=== PATIENT | female | born 1980 | race Caucasian/White ===

== ENCOUNTER → 2017-02-21 | Outpatient (CLI) | payer BC ==
[~2017-02-21] MED LIST: FRS325T PO; PREN1TAB49 PO
--- NOTE | 2017-02-21 17:36 | Diagnostic Imaging Report ---
INDICATION: Irregular menses. Abnormal menstrual bleeding. COMPARISON: None. TECHNIQUE: Transpelvic and transvaginal sonogram was performed. FINDINGS: The uterus is anteverted and measures 10.7 cm in length x 7.1 cm transversely x 6.1 cm in AP dimension. No focal myometrial mass-type lesions are seen. Endometrial stripe measures 13 mm in AP thickness. Endometrial stripe is predominantly hyperechoic, but does show some areas of heterogeneity. There is also some blurring of the subendometrial margins. Visualized portions of the cervix are unremarkable. No adnexal masses or free fluid are seen. Ovaries cannot be well visualized on either side. IMPRESSION: 1. Borderline thickened and slightly heterogeneous appearance to the endometrium. Underlying endometrial mass cannot be excluded. Additionally, the subendometrial margins are not well defined. This does also raise concern for possible adenomyosis. If further imaging evaluation is desired, dedicated pelvic MR is recommended. Dictated by: Dictated on workstation # [id number]
== END ==
LOC: RAD 16:29
PROVIDERS: ATTEND Nurse Practitioner Family
DX: N92.1 Excessive and frequent menstruation with irregular cycle (principal)
CPT/HCPCS: 76830; 76856

== ENCOUNTER 2017-03-08 12:48 | Outpatient (RCR) | payer BC, OTHER ==
[2017-02-07 13:31] LABS: BASOPHILS % (AUTO) 1 % (0-10); EOSINOPHILS # (AUTO) 0.2 10^3/uL (0.0-0.3); EOSINOPHILS % (AUTO) 5 % (0-10); LYMPHOCYTES # (AUTO) 1.2 X 10^3 (1.0-4.0); LYMPHOCYTES % (AUTO) 23 % (12-44); MEAN CORPUSCULAR HEMOGLOBIN 27 PG (25-34); MEAN CORPUSCULAR HGB CONC 32 G/DL (32-36); MEAN CORPUSCULAR VOLUME 84 FL (80-99); MEAN PLATELET VOLUME 11.3 FL (7.4-10.4); MONOCYTES # (AUTO) 0.4 X 10^3 (0.0-1.0); MONOCYTES % (AUTO) 7 % (0-12); NEUTROPHILS # (AUTO) 3.2 X 10^3 (1.8-7.8); NEUTROPHILS % (AUTO) 65 % (42-75); PLATELET COUNT 319 10^3/uL (130-400); RED BLOOD COUNT 3.91 10^6/uL (4.35-5.85)
[2017-02-07 14:11] LABS: ALANINE AMINOTRANSFERASE 9 U/L (0-55); ALBUMIN 4.4 GM/DL (3.2-4.5); ANION GAP 8 MMOL/L (5-14); ASPARTATE AMINO TRANSFERASE 9 U/L (5-34); BILIRUBIN,TOTAL 0.5 MG/DL (0.1-1.0); BLOOD UREA NITROGEN 7 MG/DL (7-18); BUN/CREATININE RATIO 9; CALCIUM 9.2 MG/DL (8.5-10.1); CARBON DIOXIDE 22 MMOL/L (21-32); CHLORIDE 108 MMOL/L (98-107); CREATININE SERUM 0.76 MG/DL (0.60-1.30); GFR ESTIMATED > 60; GLUCOSE 88 MG/DL (70-105); POTASSIUM 3.7 MMOL/L (3.6-5.0); SODIUM 138 MMOL/L (135-145); TOTAL PROTEIN 7.3 GM/DL (6.4-8.2)
[2017-03-08 13:15] LABS: BASOPHILS % (AUTO) 1 % (0-10); EOSINOPHILS # (AUTO) 0.3 10^3/uL (0.0-0.3); EOSINOPHILS % (AUTO) 6 % (0-10); LYMPHOCYTES # (AUTO) 1.3 X 10^3 (1.0-4.0); LYMPHOCYTES % (AUTO) 25 % (12-44); MEAN CORPUSCULAR HEMOGLOBIN 30 PG (25-34); MEAN CORPUSCULAR HGB CONC 33 G/DL (32-36); MEAN CORPUSCULAR VOLUME 90 FL (80-99); MEAN PLATELET VOLUME 11.8 FL (7.4-10.4); MONOCYTES # (AUTO) 0.4 X 10^3 (0.0-1.0); MONOCYTES % (AUTO) 7 % (0-12); NEUTROPHILS # (AUTO) 3.2 X 10^3 (1.8-7.8); NEUTROPHILS % (AUTO) 61 % (42-75); PLATELET COUNT 293 10^3/uL (130-400); RED BLOOD COUNT 3.91 10^6/uL (4.35-5.85); RED CELL DISTRIBUTION WIDTH 18.7 % (10.0-14.5); WHITE BLOOD COUNT 5.1 10^3/uL (4.3-11.0)
== END 2017-04-09 | disposition home or self-care (01) ==
LOC: ONC 12:48
PROVIDERS: ATTEND Internal Medicine Hematology & Oncology
DX: D50.9 Iron deficiency anemia, unspecified (principal); N92.0 Excessive and frequent menstruation with regular cycle; E53.8 Deficiency of other specified B group vitamins; E55.9 Vitamin D deficiency, unspecified; Z79.899 Other long term (current) drug therapy
CPT/HCPCS: 36415; 80053; 82728; 83540; 85025; 99213; 99214

== ENCOUNTER 2017-10-22 20:28 | Emergency (ER) | payer BC ==
[~2017-10-22] VITALS: Ht 162.6 cm; Wt 65.8 kg
[2017-10-22] MEDS ORDERED: ERGO50006 (20:43)
[2017-10-22] MEDS ORDERED: NORG1TAB81 (20:43)
[2017-10-22] MEDS ORDERED: C250T (20:43)
[2017-10-22] MEDS ORDERED: SERT100T8 (20:43)
--- NOTE | 2017-10-22 20:58 | ED GU-Female ---
General Chief Complaint: -Female Stated Complaint: DYSURIA,FEVER,CHILLS Nursing Triage Note: C/O DYSURIA AND BEING UNALBE TO EMPTY BLADDER Nursing Sepsis Screen: No Definite Risk Source: patient Exam Limitations: no limitations History of Present Illness Date Seen by Provider: Oct 22, 2017 Time Seen by Provider: 20:49 Initial Comments The patient presents to the ER by private conveyance with a chief complaint that she is having urinary symptoms for the last 3 weeks intermittently. She thought she had a urinary tract infection but went away on her own using cranberry and copious fluids. However the last day or so she's had difficulty urinating and today she's not urinated since this morning although she feels she has to urinate she feels like her bladder is backed up. She has painful attempts to urinate and pain in her right flank that is made worse by movement. She has no history of kidney stones. She's never had pyelonephritis. She's having no fevers, chills or she is having nausea without vomiting. The patient is on oral contraceptives. Allergies and Home Medications Allergies Coded Allergies: metoclopramide (Verified Allergy, Unknown, 10/13/09) Home Medications Ferrous Sulfate 325 Mg Tab, 325 MG PO BID Prescribed by: GIANFRANCO CELESTE on 12/12/14 0138 Patient Home Medication List Home Medication List Reviewed: Yes Review of Systems Constitutional: No chills, No diaphoresis, No fever, No malaise EENTM: No ear discharge, No ear pain Respiratory: No cough, No short of breath Gastrointestinal: No abdominal pain, No constipation, No diarrhea; nausea; No vomiting; other (right flank pain) Genitourinary: burning; denies discharge; dysuria, frequency (hesitancy) : No (oral contraceptive pills) Musculoskeletal: back pain (right flank); No joint pain Past Bzxglzd-Mzrkcm-Cntcrg Hx Patient Social History Alcohol Use: Denies Use Recreational Drug Use: No Smoking Status: Never a Smoker Recent Foreign Travel: No Contact w/Someone Who Travel: No Recent Infectious Disease Expo: No Recent Hopitalizations: No Past Medical History Surgeries: Yes ( X 4, D & C X 1, MOLE REMOVAL) Section Respiratory: No Cardiac: No Neurological: No Reproductive Disorders: No Female Reproductive Disorders: Denies Sexually Transmitted Disease: No HIV/AIDS: No Gastrointestinal: No Musculoskeletal: No Endocrine: No Cancer: No Psychosocial: No Integumentary: No Blood Disorders: No Physical Exam Vital Signs Vital Signs - First Documented 10/22/17 20:36 Temp 98.0 Pulse 87 Resp 18 B/P (MAP) 124/67 (86) Pulse Ox 98 Capillary Refill : Less Than 3 Seconds General Appearance: WD/WN, mild distress HEENT: PERRL/EOMI, pharynx normal Neck: non-tender, supple, normal inspection Cardiovascular: normal peripheral pulses, regular rate, rhythm, no edema Respiratory: lungs clear, normal breath sounds, no respiratory distress, no accessory muscle use Gastrointestinal: non tender, soft, other (palpable bladder but not massive.) Back: normal inspection, no vertebral tenderness, CVA tenderness (R); No CVA tenderness (L) Extremities: non-tender, normal capillary refill Neurologic/Psychiatric: alert, oriented x 3 Skin: normal color, warm/dry Progress/Results/Core Measures Suspected Sepsis Recent Fever Within 48 Hours: No Infection Criteria Present: None New/Unexplained Altered Menta: No Sepsis Screen: No Definite Risk SIRS Temperature:98.0 Pulse: 87 Respiratory Rate: 18 Blood Pressure 124 /67 Mean: 86 Results/Orders Lab Results Laboratory Tests Test 10/22/17 21:05 Range/Units Urine Color YELLOW Urine Clarity SLIGHTLY CLOUDY Urine pH 6.5 5-9 Urine Specific Steele 1.010 L 1.016-1.022 Urine Protein 3+ H NEGATIVE Urine Glucose (UA) NEGATIVE NEGATIVE Urine Ketones NEGATIVE NEGATIVE Urine Nitrite NEGATIVE NEGATIVE Urine Bilirubin NEGATIVE NEGATIVE Urine Urobilinogen NORMAL NORMAL MG/DL Urine Leukocyte Esterase 3+ H NEGATIVE Urine RBC (Auto) 4+ H NEGATIVE Urine RBC 2-5 H /HPF Urine WBC TNTC H /HPF Urine Crystals NONE /LPF Urine Bacteria MODERATE H /HPF Urine Casts NONE /LPF Urine Mucus NEGATIVE /LPF Urine Culture Indicated YES My Orders Orders - MARIA C FOX Ua Culture If Indicated (10/22/17 20:41) Ketorolac Injection (Toradol Injection) (10/22/17 21:00) Ondansetron Oral Dissolve Tab (Zofran (10/22/17 21:00) Sharp Cath Insertion (10/22/17 20:51) Urine Bedside (10/22/17 20:51) Ct Abd/Pelvis Wo(Kidney Stone) (10/22/17 20:51) Ceftriaxone Injection (Rocephin Injectio (10/22/17 21:00) Lidocaine 1% Inj 50 Ml (Xylocaine 1% Inj (10/22/17 21:00) Urine Culture (10/22/17 21:05) Medications Given in ED Current Medications Medications Dose Ordered Sig/Ashlyn Route Start Time Stop Time Status Last Admin Dose Admin Ceftriaxone Sodium 1,000 mg ONCE ONCE IM 10/22/17 21:00 10/22/17 21:01 DC 10/22/17 21:21 1,000 MG Ketorolac Tromethamine 15 mg ONCE ONCE IM 10/22/17 21:00 10/22/17 21:01 DC 10/22/17 21:21 15 MG Lidocaine HCl 2.1 ml ONCE ONCE IJ 10/22/17 21:00 10/22/17 21:01 DC 10/22/17 21:21 2.1 ML Ondansetron HCl 4 mg ONCE ONCE PO 10/22/17 21:00 10/22/17 21:01 DC 10/22/17 21:21 4 MG Vital Signs/I&O 10/22/17 20:36 Temp 98.0 Pulse 87 Resp 18 B/P (MAP) 124/67 (86) Pulse Ox 98 Capillary Refill : Less Than 3 Seconds Blood Pressure Mean: 86 Progress Note : Time: 20:57 Progress Note The patient is requesting a catheter to decompress her bladder as she is attempting to urinate here in the ER and unable to initiate a stream. We'll get a good clean catch sample and perform a CT of her abdomen and pelvis without contrast looking for pyelonephritis versus a kidney stone. We'll give her some pain and nausea medicine and initiate Rocephin. Diagnostic Imaging Diagonstic Imaging: CT Plain Films/CT/US/NM/MRI: abdomen, pelvis Reviewed: Reviewed by Me Departure Impression Primary Impression: Urinary tract infection Qualified Codes: N30.01 - Acute cystitis with hematuria Disposition: HOME, SELF-CARE Condition: Stable Departure-Patient Inst. Decision time for Depature: 21:55 Referrals: ROGELIO CARRIZALES DO (PCP) Primary Care Physician GIOVANNY RIDLEY (Family) Primary Care Physician Patient Instructions: Urinary Tract Infection, Adult (DC) Add. Discharge Instructions: Drink lots of fluids. Use Tylenol or Motrin for pain in the Zofran 1 tablet every 6 hours for nausea. 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 All discharge instructions reviewed with patient and/or family. Voiced understanding. Scripts Ondansetron (Ondansetron Odt) 4 Mg Tab.rapdis 4 MG PO Q6H PRN for NAUSEA/VOMITING, #8 TAB 0 Refills Prov: MARIA C FOX 10/22/17 Cephalexin (Cephalexin) 500 Mg Tablet 500 MG PO BID for 7 Days, #14 TAB 0 Refills Prov: MARIA C FOX 10/22/17 Work/School Note: Work Release Form Date Seen in the Emergency Department: Oct 22, 2017 Return to Work: Oct 23, 2017 Restrictions: No Restrictions Copy Copies To 2: ROGELIO CARRIZALES TITUS J Oct 22, 2017 20:58
[2017-10-22] MEDS ORDERED: KETOROLAC 30 MG/ML VIAL IM ONE (21:00)
[2017-10-22] MEDS ORDERED: cefTRIAXone 1 GM (ROCEPHIN) VIAL IM ONE (21:00)
[2017-10-22] MEDS ORDERED: ONDANSETRON 4 MG (ZOFRAN) ORAL DISSOLVE TAB PO ONE (21:00)
[2017-10-22] MEDS ORDERED: LIDOCAINE 1% INJ 50 ML (XYLOCAINE) VIAL IJ ONE (21:00)
[2017-10-22 21:11] LABS: BILIRUBIN,URINE NEGATIVE (NEGATIVE); CLARITY,URINE SLIGHTLY CLOUDY; COLOR,URINE YELLOW; GLUCOSE, URINE (UA) NEGATIVE (NEGATIVE); KETONES,URINE NEGATIVE (NEGATIVE); LEUKOCYTE ESTERASE ,URINE 3+ (NEGATIVE); NITRITE,URINE NEGATIVE (NEGATIVE); PH,URINE 6.5 (5-9); PROTEIN,URINE 3+ (NEGATIVE); UROBILINOGEN,URINE NORMAL (NORMAL)
--- NOTE | 2017-10-22 21:23 | Diagnostic Imaging Report ---
PROCEDURE: CT urinary tract, rule out kidney stone. TECHNIQUE: Multiple contiguous axial images were obtained through the abdomen and pelvis without the use of intravenous contrast. INDICATION: Dysuria Lung bases are clear. Liver appears normal. Gallbladder is decompressed. There is a large amount of food residue in the stomach. Pancreas is normal. Spleen is normal. There is mild hydronephrosis of the right kidney. There are no calculi. There is no mass seen. Left kidney is normal. The right ureter is mildly dilated. Urinary bladder is decompressed with a Sharp catheter. There is no lymphadenopathy. There is no intraperitoneal free air or free fluid. IMPRESSION: Mild hydronephrosis of the right kidney with a mildly dilated right ureter but no radiopaque calculi seen. Dictated by: Dictated on workstation # [id number]
[2017-10-22 21:35] LABS: BACTERIA,URINE MODERATE /HPF; WBC,URINE TNTC /HPF
[2017-10-22] MEDS ORDERED: RX-ONDANSETRON 4 MG ODT (ZOFRAN) PPK #4 PO STA (22:02)
[2017-10-22] MEDS ORDERED: CEPH500T PO (22:02)
[2017-10-22] MEDS ORDERED: RX-CEPHALEXIN (KEFLEX) 250 MG CAP PPK#4 PO STA (22:02)
[2017-10-22] MEDS ORDERED: ONDA4TAB11 PO (22:02)
[2017-10-22 22:16] VITALS: BP 124/67
== END 2017-10-22 22:18 | disposition home or self-care (01) ==
LOC: EDUNIT# 20:28 → ER 20:29
DX: N39.0 Urinary tract infection, site not specified (principal); Z87.59 Personal history of other complications of pregnancy, childbirth and the puerperium
CPT/HCPCS: 51702; 74176; 81000; 84703; 87077; 87088; 87186; 96372

== ENCOUNTER 2019-09-03 09:15 | Outpatient (CLI) | payer OTHER ==
[~2019-09-03] VITALS: Ht 162.6 cm; Wt 67.4 kg
[~2019-09-03 09:15] MED LIST changes: +C250T; +CEPH500T PO; +ERGO50006; +NORG1TAB19; +ONDA4TAB11 PO; +SERT100T8
--- NOTE | 2019-09-03 09:23 | NUR ---
BIRGIT ZHONG presented to unit from ED, with c/o FAINTING;DIZZINESS. BIRGIT ZHONG weighed, gowned, voided, and to bed. VS taken and FHT's dopplered. BIRGIT ZHONG oriented to bed controls, call light, TV, heat, and A/C controls.
[2019-09-03 09:40] VITALS: BP 112/57
[2019-09-03 09:43] LABS: BILIRUBIN,URINE NEGATIVE (NEGATIVE); CLARITY,URINE CLEAR; COLOR,URINE YELLOW; GLUCOSE, URINE (UA) NEGATIVE (NEGATIVE); KETONES,URINE NEGATIVE (NEGATIVE); LEUKOCYTE ESTERASE ,URINE TRACE (NEGATIVE); NITRITE,URINE NEGATIVE (NEGATIVE); PROTEIN,URINE NEGATIVE (NEGATIVE)
--- NOTE | 2019-09-03 09:48 | NUR ---
FHT's dopplered at this time 160's. FM reported by patient.
--- NOTE | 2019-09-03 09:50 | NUR ---
Flu swab obtained.
[2019-09-03 09:54] LABS: BACTERIA,URINE TRACE /HPF; RBC,URINE RARE /HPF; WBC,URINE RARE /HPF
[2019-09-03] MEDS ORDERED: D5 LR IV SOLUTION 1,000 ML IV ONE (09:55)
--- NOTE | 2019-09-03 09:56 | NUR ---
Dr. Burr notified of patient's arrival and complaints. New orders received.
[2019-09-03] MEDS: D5 LR IV SOLUTION 1,000 ML IV SCH ×2 (10:08→12:14)
--- NOTE | 2019-09-03 10:08 | NUR ---
IV started with 20g jelco in patient's right hand x 1 attempt. D5LR infusing per order. Blood drawn and sent to lab.
[2019-09-03] MEDS ORDERED: PREN1TAB79 PO (10:17)
[2019-09-03] MEDS ORDERED: OSLT75C PO (10:17)
[2019-09-03 10:19] LABS: BASOPHILS % (AUTO) 0 % (0-10); EOSINOPHILS # (AUTO) 0.1 10^3/uL (0.0-0.3); EOSINOPHILS % (AUTO) 2 % (0-10); HEMATOCRIT 35 % (35-52); HEMOGLOBIN 12.4 G/DL (11.5-16.0); LYMPHOCYTES # (AUTO) 1.3 X 10^3 (1.0-4.0); LYMPHOCYTES % (AUTO) 17 % (12-44); MEAN CORPUSCULAR HEMOGLOBIN 34 PG (25-34); MEAN CORPUSCULAR HGB CONC 36 G/DL (32-36); MEAN CORPUSCULAR VOLUME 96 FL (80-99); MEAN PLATELET VOLUME 10.5 FL (7.4-10.4); MONOCYTES # (AUTO) 0.4 X 10^3 (0.0-1.0); MONOCYTES % (AUTO) 6 % (0-12); NEUTROPHILS # (AUTO) 5.7 X 10^3 (1.8-7.8); NEUTROPHILS % (AUTO) 75 % (42-75); PLATELET COUNT 303 10^3/uL (130-400); RED CELL DISTRIBUTION WIDTH 13.2 % (10.0-14.5); WHITE BLOOD COUNT 7.6 10^3/uL (4.3-11.0)
[2019-09-03 10:38] LABS: ALANINE AMINOTRANSFERASE 9 U/L (0-55); ALBUMIN 3.5 GM/DL (3.2-4.5); ALKALINE PHOSPHATASE 45 U/L (40-136); BILIRUBIN,TOTAL 0.3 MG/DL (0.1-1.0); BUN/CREATININE RATIO 11; CALCIUM 8.8 MG/DL (8.5-10.1); CARBON DIOXIDE 21 MMOL/L (21-32); CHLORIDE 107 MMOL/L (98-107); CREATININE SERUM 0.72 MG/DL (0.60-1.30); GFR ESTIMATED > 60; GLUCOSE 83 MG/DL (70-105); SODIUM 138 MMOL/L (135-145); TOTAL PROTEIN 6.3 GM/DL (6.4-8.2)
[2019-09-03] MEDS ORDERED: FLU QUADRIvalent (5+ YOA) 2019-2020 (AFLURIA) 0.5 ML IM ONE (11:00)
--- NOTE | 2019-09-03 12:10 | NUR ---
Dr. Burr updated on patient's status. New orders received.
--- NOTE | 2019-09-03 13:28 | NUR ---
Flu vaccine administered, see EMAR. VIS sheet provided to patient.
--- NOTE | 2019-09-03 13:31 | NUR ---
Discharge instructions reviewed with patient both written and verbally. Patient verbalizes understanding and questions answered.
--- NOTE | 2019-09-03 13:45 | NUR ---
Patient discharged at this time and ambulated from the unit. No signs or symptoms of distress noted.
--- NOTE | 2019-09-05 09:02 | Physician Query-Final Dx ---
REBECCA MCDONNELL 09/05/19 0902: Clinic Account Progress/Dx Physician Query: Please give diagnosis Please include # weeks gestation Date of Service Sep 03, 2019 at 09:15 JOHN MARMOLEJO MD 09/06/19 0757: Clinic Account Progress/Dx DIAGNOSIS: Diagnosis 21 weeks gestation with vasovagal syncope REBECCA MCDONNELL Sep 05, 2019 09:02 JOHN MARMOLEJO MD Sep 06, 2019 07:57
== END 2019-09-03 13:45 | disposition home or self-care (01) ==
LOC: WSo 09:15 → WS 09:15 → LDRP 09:15 → WSo 13:45
PROVIDERS: ATTEND Obstetrics & Gynecology
DX: Z34.92 Encounter for supervision of normal pregnancy, unspecified, second trimester (principal); Z3A.22 22 weeks gestation of pregnancy
CPT/HCPCS: 36415; 80053; 81000; 85025; 87088; 87804; 90471; 96360; 96361; 99213

== ENCOUNTER 2019-11-21 16:17 | Outpatient (CLI) | payer OTHER, MEDICAID ==
[~2019-11-21] VITALS: Ht 162.6 cm; Wt 74.0 kg
--- NOTE | 2019-11-21 16:00 | NUR ---
Arrived to unit ambulates self accompanied by s.o. Wt obtained and to room 315. Gowned and urine sample obtained. pt c/o "leaking small amt of fluid in underwear this morning." pt denies any fluid leaking since. Plan of care reviewed with pt and s.o. To bed and monitors on.
[~2019-11-21 16:17] MED LIST changes: +OSLT75C PO; +PREN1TAB79 PO
[2019-11-21 16:30] VITALS: BP 111/56
[2019-11-21 16:33] VITALS: BP 111/56
--- NOTE | 2019-11-21 16:44 | NUR ---
Dr Burr called and notified of pt arrival, c/o, assessment, nitrazine negative. New order for discharge received.
--- NOTE | 2019-11-21 16:58 | NUR ---
Discharge instructions explained, signed and copy to patient. pt verbalized understanding of instructions and denied questions.
--- NOTE | 2019-11-21 17:00 | NUR ---
Discharged to home. Ambulates self off unit accompanied by s.o. To private vehicle with belongings in hand.
== END 2019-11-21 17:00 | disposition home or self-care (01) ==
LOC: WSo 16:17 → LDRP 16:18 → WSo 17:00
PROVIDERS: ATTEND Obstetrics & Gynecology
DX: O41.93X0 Disorder of amniotic fluid and membranes, unspecified, third trimester, not applicable or unspecified (principal); Z3A.33 33 weeks gestation of pregnancy
CPT/HCPCS: 99214

== ENCOUNTER 2019-12-07 10:10 | Inpatient (IN) | payer OTHER, MEDICAID ==
[~2019-12-07] VITALS: Ht 162.6 cm; Wt 74.0 kg
[2019-12-07] VITALS (13 sets, daily range): BP systolic 85–110; BP diastolic 46–69
--- NOTE | 2019-12-07 10:10 | NUR ---
BIRGIT ZHONG presented to unit via ambulation from ED, accompanied by s/o, with c/o DECREASED MOVEMENT; DISTRESS. BIRGIT ZHONG weighed, gowned, voided, and to bed. EFHM and TOCO applied, VS taken. BIRGIT ZHONG oriented to bed controls, call light, TV, heat, and A/C controls.
[2019-12-07] MEDS ORDERED: D5 LR IV SOLUTION 1,000 ML IV ONE (10:59)
--- NOTE | 2019-12-07 12:00 | NUR ---
dr matson to OB floor. reviewed labs with Dr. pro to bedside to review tracing/ fhr monitor and review plan of care. continuing to observe at this time.
[2019-12-07 12:59] LABS: BASOPHILS % (AUTO) 0 % (0-10); EOSINOPHILS # (AUTO) 0.1 10^3/uL (0.0-0.3); EOSINOPHILS % (AUTO) 2 % (0-10); HEMATOCRIT 34 % (35-52); HEMOGLOBIN 11.6 G/DL (11.5-16.0); LYMPHOCYTES # (AUTO) 1.2 X 10^3 (1.0-4.0); LYMPHOCYTES % (AUTO) 18 % (12-44); MEAN CORPUSCULAR HEMOGLOBIN 32 PG (25-34); MEAN CORPUSCULAR HGB CONC 35 G/DL (32-36); MEAN CORPUSCULAR VOLUME 92 FL (80-99); MEAN PLATELET VOLUME 11.4 FL (7.4-10.4); MONOCYTES # (AUTO) 0.5 X 10^3 (0.0-1.0); MONOCYTES % (AUTO) 7 % (0-12); NEUTROPHILS # (AUTO) 5.2 X 10^3 (1.8-7.8); NEUTROPHILS % (AUTO) 73 % (42-75); PLATELET COUNT 238 10^3/uL (130-400); RED CELL DISTRIBUTION WIDTH 13.4 % (10.0-14.5)
--- NOTE | 2019-12-07 14:05 | NUR ---
dr matson to bedside assessing pain and contraction intensity /fhr pattern.
--- NOTE | 2019-12-07 14:15 | NUR ---
surgery called by RN to notify of patient need for delivery
[2019-12-07] MEDS ORDERED: CITRIC ACID/SOB CIT (BICITRA) 30 ML UDC ONE (14:19)
[2019-12-07] MEDS ORDERED: METOCLOPRAMIDE INJ 10 MG/2 ML (REGLAN) ONE (14:19)
[2019-12-07] MEDS ORDERED: metroNIDAZOLE 500MG/100ML IVPB 100 ML ONE (14:19)
[2019-12-07] MEDS ORDERED: ceFAZolin 2 GM IV Premixed 50 ML ONE (14:19)
[2019-12-07] MEDS ORDERED: fentaNYL INJECTION 100 MCG/2 ML AMP ONE (14:19)
[2019-12-07] MEDS ORDERED: LACTATED RINGERS 1,000 ML IV ONE (14:19)
[2019-12-07] MEDS ORDERED: OXYTOCIN PRE-MIX DRIP 1,000 ML IV ONE (14:19)
[2019-12-07] MEDS ORDERED: FAMOTIDINE 20MG/2ML IV (PEPCID) ONE (14:20)
--- NOTE | 2019-12-07 14:25 | NUR ---
anesthesia at bedside. reviewing poc.
--- NOTE | 2019-12-07 14:27 | History & Physical ---
History and Physical Date Seen by Provider: December 07, 2019 Time Seen by Provider: 14:22 This patient is a 38-year-old for ectopic 1 white female with an EDC of January 07, 2020 putting her now at 35-1/2 weeks gestation. She was sent to labor and delivery from my clinic after a biophysical profile demonstrated a significantly dropping amniotic fluid index and an NST showed a persistent D cell heart rate contraction of down to 40-60 beats a minute for 2 minutes. Patient is faviola about every 6 or 8 minutes. The contractions are taking her breath away. She denies membranes or bleeding. Her GBS culture is not yet available. Decision is made to go ahead with delivery secondary to her previous 4 C-sections and due to the notable D cell and with no nuchal cord on recent ultrasound confirmed again on this date. Patient understands that there is potential that the baby would require NICU at 35-1/2 weeks gestation. Allergies are to Reglan which causes disorientation or itching Medications are vitamins Medical social and surgical histories are per the antepartum record HEENT exam is normal neck is with no lymphadenopathy no thyromegaly Abdomen is gravid soft nontender nondistended Extremities show no clubbing or cyanosis. There is no Homans sign. Pelvic exam shows a cervix that is thinned significantly since her previous exam to the point where she is 80 percent effaced where she was thick and closed 2 days ago. monitor shows normal heart rate pattern with an occasional subtle decelerations following contractions consistent with a late D cells. There are accelerations and variability is normal at this point. Contractions are about every 5-8 minutes Laboratory Tests 12/07/19 10:55 Assessment and plan 35 week gestation in patient with previous C-sections with a double nuchal cord and with decreasing amniotic fluid index and was suspicious monitoring. Decision as to proceed with delivery at this point and except the risk and likelihood for the baby to require NICU care Allergies and Home Medications Allergies Coded Allergies: metoclopramide (Verified Allergy, Unknown, 10/13/09) Home Medications Vit W-Ca,Fe,FA(<1 mg) 1 Each Tablet, 1 EACH PO DAILY, (Reported) Patient Home Medication List Home Medication List Reviewed: Yes JOHN MARMOLEJO MD December 07, 2019 14:27
[2019-12-07] MEDS ORDERED: D5 LR IV SOLUTION 1,000 ML IV SCH (14:29)
[2019-12-07] MEDS ORDERED: MEASLES,MUMPS,RUBELLA 1 EA INJ SC ONE (14:30)
[2019-12-07] MEDS ORDERED: ONDANSETRON 4 MG/2 ML (SDV) Z0FRAN IVP PRN (14:30)
[2019-12-07] MEDS ORDERED: TETANUS,DIPTH,PERTUSS P/F (BOOSTRIX) 0.5 ML VIAL IM ONE (14:30)
[2019-12-07] MEDS ORDERED: metroNIDAZOLE 500MG/100ML IVPB 100 ML IV ONE (14:30)
[2019-12-07] MEDS ORDERED: DOCU-143 PO (14:34)
[2019-12-07] MEDS ORDERED: OXYC1TAB12 PO (14:34)
[2019-12-07] MEDS ORDERED: IBUP-1780 PO (14:34)
--- NOTE | 2019-12-07 14:34 | Discharge Inst-Surgical ---
Discharge Inst-Surgical Depart Medication/Instructions New, Converted or Re-Newed RX: RX on Chart Consults/Follow Up Patient Instructions: As directed Orders & Referrals Follow Up Appt: RTC 1 week for incision check. Call to make follow up appt. for patient in 4 weeks. Wound Care: Remove deng, apply benzoin and steri strips. Activity Per routine post instructions. Please call in RX to patient pharmacy. Diet as tolerated Patient may shower or tub bathe as desired. Continue home meds Activity Activity as Tolerated: No Diet Discharge Diet: No Restrictions JOHN MARMOLEJO MD December 07, 2019 14:34
[2019-12-07] MEDS ORDERED: ceFAZolin 2 GM IV Premixed 50 ML IV NR (14:45)
[2019-12-07] MEDS ORDERED: BUPIVACAINE 0.5% 30 ML (SENSORCAINE) VIAL ONE (15:11)
[2019-12-07] MEDS ORDERED: PHENYLEPHRINE 100 MCG/ML 10 ML (ANESTHESIA) SYR ONE (15:14)
--- NOTE | 2019-12-07 16:30 | NUR ---
received report from Rocky Price RN. Pt to room 307 via bed. at side. IV infusing without difficulty. call light within reach. see interventions.
[2019-12-07] MEDS: OXYTOCIN PRE-MIX DRIP 500 ML IV SCH ×2 (17:04→21:43)
[2019-12-07] MEDS: KETOROLAC 30 MG/ML VIAL IVP SCH ×2 (17:11→22:12)
[2019-12-07] MEDS: DOCUSATE SODIUM 100 MG (COLACE) CAP PO SCH (20:25)
[2019-12-07] MEDS: oxyCODONE/APAP 10/325MG (PERCOCET 10) TABLET PO PRN (20:25)
[2019-12-07] MEDS ORDERED: DOCUSATE SODIUM 100 MG (COLACE) CAP PO SCH (21:00)
--- NOTE | 2019-12-07 22:22 | OPERATIVE REPORT ---
DATE OF SERVICE: 12/07/2019 PREOPERATIVE DIAGNOSIS: 35 and 4/7 weeks gestation with nonreassuring heart rate pattern and compound nuchal cord. POSTOPERATIVE DIAGNOSES: 35 and 4/7 weeks gestation with nonreassuring heart rate pattern and compound nuchal cord with uterine scar separation and with the unique presentation and with nuchal cord. OPERATIVE PROCEDURE: Repeat low transverse delivery of a viable male with Apgars that are pending. time of 15:02. Cord blood pH that is pending and a weight of 6 pounds and 2 ounces. OPERATIVE DESCRIPTION: With the patient in the supine position under satisfactory spinal analgesia, she was prepped and draped in the usual fashion for abdominal surgery. Sharp catheter was placed in the urinary bladder. A repeat Pfannenstiel incision was made through skin with a scalpel. The patient's abdomen was entered in the usual manner. The lower uterine segment was bulging with placental tissue protruding through the partially uterine incision site. There was a uterine window of approximately 3 x 5 cm. Incision was made carefully to avoid the placenta through the lower uterine segment just inferior to the reflection of the placenta. It was immediately apparent that there was a near velamentous insertion of the umbilical cord directly through the lower uterine segment at the site of the incisional scars. The incision was extended carefully bluntly, placenta bulge through the incision on hysterotomy. Segal forceps were applied to facilitate the delivery of the and to avoid excessive pressure, which only cause more protrusion of the placenta through the incision. The was bulb suctioned on delivery of the head and again on completion of delivery. A nuchal cord was released. The shoulder cord was released and a body cord was entangled as the delivered. The was bulb suctioned on completion of delivery as the umbilical cord was doubly clamped and then the cord was cut and the infant passed to the pump installer in attendance for delivery. Cord bloods were obtained and then the placenta delivered partially spontaneously and partially manually. Again, the placenta was bulging through the incision as it was implanted completely across the superior margin of the incision, which was barely closed at the time of hysterotomy. The placenta was sent to pathology for permanent section. The uterus was now exteriorized, interior wiped clean with a wet laparotomy sponge. Uterine incision then closed with a running locked suture of 2-0 Vicryl. Hemostasis was complete. The uterus was returned to the abdominal cavity. Sponge and needle counts were correct, hemostasis assured. The anterior parietal peritoneum was closed with running suture of 2-0 Vicryl. Rectus muscles were closed with that suture as well. The rectus fascia was closed with 2-0 Vicryl, subcutaneous tissue was closed with 2-0 Vicryl and the skin was stapled. Sponge and needle counts were correct on completion of the procedure. Estimated blood loss was around 500 mL. The patient tolerated the procedure well and was transferred to the recovery room in stable condition. The had been taken stable to the full term nursery under the care of the pump installer in attendance. Job ID: [id number] DocumentID: [id number] Dictated Date: 12/07/2019 15:29:04 Producer Date: 12/07/2019 22:20:22 Dictated By: JOHN MARMOLEJO MD
--- NOTE | 2019-12-08 03:30 | NUR ---
Report received from Yrn Barragan RN
[2019-12-08 04:20] VITALS: BP 95/65
[2019-12-08] MEDS: KETOROLAC 30 MG/ML VIAL IVP SCH (04:22)
[2019-12-08] MEDS: oxyCODONE/APAP 10/325MG (PERCOCET 10) TABLET PO PRN ×3 (04:43→21:02)
[2019-12-08 08:35] VITALS: BP 98/53
[2019-12-08] MEDS: DOCUSATE SODIUM 100 MG (COLACE) CAP PO SCH ×2 (08:40→21:02)
[2019-12-08] MEDS ORDERED: IBUPROFEN 800 MG (MOTRIN) TAB PO ONE ×2 (09:33→15:31)
--- NOTE | 2019-12-08 10:01 | Progress Note ---
Standard Progress Note Progress Notes/Assess & Plan Date Seen by a Provider: December 08, 2019 Time Seen by a Provider: 10:00 Progress/Assessment & Plan This patient complains of some dizziness with ambulation. She does have good pain control. She is voiding and tolerating oral intake well she does have some nausea that may be related to pain medication. Vital Signs Date Time Temp Pulse Resp B/P (MAP) Pulse Ox O2 Delivery O2 Flow Rate FiO2 12/08/19 04:20 36.4 77 16 95/65 (75) 99 Room Air 12/07/19 23:14 36.2 76 16 105/55 (72) 95 Room Air 12/07/19 20:05 36.8 67 16 108/56 (73) 95 Room Air 12/07/19 17:00 36.8 57 18 110/55 (73) 100 Room Air 12/07/19 16:30 36.4 62 16 106/55 (72) 100 Room Air 12/07/19 16:25 Room Air 12/07/19 16:20 Room Air 12/07/19 16:20 36.3 20 90/68 (75) 99 Room Air 12/07/19 16:15 Room Air 12/07/19 16:10 20 92/68 (76) 100 Room Air 12/07/19 16:00 Room Air 12/07/19 16:00 20 88/46 (60) 99 Room Air 12/07/19 15:50 Room Air 12/07/19 15:50 20 90/68 (75) 100 Room Air 12/07/19 15:40 20 85/50 (62) 100 Room Air 12/07/19 15:40 Room Air 12/07/19 15:30 20 90/50 (63) 100 Room Air 12/07/19 15:26 Room Air 12/07/19 15:26 36.3 20 88/50 (63) 100 Room Air 12/07/19 13:15 68 20 105/53 (70) Room Air 12/07/19 10:20 36.1 78 20 100 Room Air 12/07/19 10:20 36.1 78 20 100 Room Air I & O 12/08/19 07:00 Intake Total 4350 ml Output Total 750 ml Balance 3600 ml Vital signs are stable. Patient is afebrile. The abdomen is benign. Fundus is firm below the umbilicus and nontender. The surgical incision is clean dry and intact. Extremities show no clubbing cyanosis. There is no Homans sign. Assessment and plan postoperative day number 1 status post repeat delivery at 35+ weeks gestation. Patient is doing relatively well and will have Routine convalescence care. Patient reports that her baby is doing quite well at the [facility] NICU Final Diagnosis 35 week repeat delivery JOHN MARMOLEJO MD December 08, 2019 10:01
[2019-12-08] MEDS: ONDANSETRON 4 MG (ZOFRAN) ORAL DISSOLVE TAB PO PRN (10:19)
--- NOTE | 2019-12-08 10:23 | Anesthesia-Regional Post-Op ---
Regional Patient Condition Mental Status: Alert, Oriented x3 Circulation: Same as Pre-Op Headache: Absent Sensation: Full Recovery Motor Block: Absent Post Op Complications Complications None Follow Up Care/Instructions Patient Instructions None needed. Anesthesia/Patient Condition Patient is doing well, no complaints, stable vital signs, no apparent adverse anesthesia problems. No complications reported per nursing. MICA SUMMERS CRNA December 08, 2019 10:23
--- NOTE | 2019-12-08 11:30 | NUR ---
Up in chair. Denies nausea and severe pain. Does not require any Oxycodone at present.
[2019-12-08 12:00] VITALS: BP 105/60
[2019-12-08 15:45] VITALS: BP 101/56
[2019-12-08] MEDS: IBUPROFEN 800 MG (MOTRIN) TAB PO SCH ×2 (15:45→21:02)
--- NOTE | 2019-12-08 19:50 | NUR ---
Pt. sitting up in chair after shower, voiced she would like to try and abdominal binder. RN demonstrated proper use, pt. verbalized understanding. No other needs voiced at this time.
[2019-12-08 21:00] VITALS: BP 107/65
[2019-12-09 03:05] VITALS: BP 96/62
[2019-12-09] MEDS: IBUPROFEN 800 MG (MOTRIN) TAB PO SCH ×2 (03:07→13:43)
[2019-12-09] MEDS: oxyCODONE/APAP 10/325MG (PERCOCET 10) TABLET PO PRN ×2 (03:07→13:43)
[2019-12-09] MEDS: ONDANSETRON 4 MG (ZOFRAN) ORAL DISSOLVE TAB PO PRN (04:07)
[2019-12-09 08:35] VITALS: BP 106/59
[2019-12-09] MEDS: DOCUSATE SODIUM 100 MG (COLACE) CAP PO SCH (08:41)
[2019-12-09 10:45] VITALS: BP 106/59
--- NOTE | 2019-12-09 11:35 | NUR ---
Silverio dc'd and steri strips applied. Pt grimacing and anxious during removal. They plan to be discharged and go to [facility] to see in NICU.
--- NOTE | 2019-12-09 13:43 | NUR ---
Discharge instructions and medications reviewed with patient both written and verbally. Patient verbalizes understanding and questions answered. Motrin and Percocet 1 PO given for patient's c/o pain.
--- NOTE | 2019-12-09 13:54 | NUR ---
Patient discharged at this time via wheelchair and accompanied down to awaiting private vehicle by this RN. No signs or symptoms of distress noted.
--- NOTE | 2019-12-11 18:07 | Physician Query Clarification ---
PQ-Uncertain Diagnosis Admission/Discharge Admission Date: December 07, 2019 at 14:15 Discharge Date: December 09, 2019 at 13:54 The medical record reflects the following clinical scenario: History/Risk Factors: 35 week Clinical Findings: 35 week , having contractions Treatment: Delivery Question: Dr. Burr: Can you please document "Pre-term 35 week delivery. We are unable to code pre-term unless we have physician documentation. Please document a response in Progress Note or Discharge Summary. PHYSICIAN RESPONSE Diagnosis clinically valid: Other, explanation/clinical finding Explanation of clincal finding done Please remember a lack of response to the above will prompt a phone page by CDI/Coding staff. In responding to this query, please exercise your independent professional judgment. The purpose of this communication is to more accurately reflect the complexity of your patients condition. The fact that a question is asked does not imply that any particular answer is desired or expected. Thank you for your timely response to this clarification. Requestors name: Dr Burr THIS PHYSICIAN QUERY FORM IS A PERMANENT PART OF THE MEDICAL RECORD RODNEY MENDOSA Dec 11, 2019 18:07 JOHN BURR MD Dec 12, 2019 13:00
== END 2019-12-09 13:54 | disposition home or self-care (01) | DRG 786 ==
LOC: LDRP 10:10 → OBSVTOIN 14:15 → LDRP 14:16
PROVIDERS: ADMIT Obstetrics & Gynecology; ATTEND Obstetrics & Gynecology
PROC: 10D00Z1 Extraction of Products of Conception, Low, Open Approach (ICD-10-PCS; principal; 2019-12-07 14:45)
DX: O76 Abnormality in fetal heart rate and rhythm complicating labor and delivery (principal); O60.14X0 Preterm labor third trimester with preterm delivery third trimester, not applicable or unspecified; O41.03X0 Oligohydramnios, third trimester, not applicable or unspecified; O69.81X0 Labor and delivery complicated by cord around neck, without compression, not applicable or unspecified; O34.211 Maternal care for low transverse scar from previous cesarean delivery; O90.0 Disruption of cesarean delivery wound; O69.82X0 Labor and delivery complicated by other cord entanglement, without compression, not applicable or unspecified; O69.89X0 Labor and delivery complicated by other cord complications, not applicable or unspecified; Z3A.35 35 weeks gestation of pregnancy; Z37.0 Single live birth; Z23 Encounter for immunization
CPT/HCPCS: 36415; 85025; 86850; 86900; 86901; 90715

== ENCOUNTER 2019-12-10 05:44 | Outpatient (RCR) | payer OTHER, MEDICAID ==
[~2019-12-10 05:44] MED LIST changes: +ASCO250T16; -C250T; +DOCU-143 PO; +IBUP-1780 PO; +OXYC1TAB12 PO
== END 2020-03-09 | disposition home or self-care (01) ==
LOC: PREOP 05:44
PROVIDERS: ATTEND Obstetrics & Gynecology
DX: Z01.818 Encounter for other preprocedural examination (principal)